=== PATIENT | female | born 1955 | race African-American/Black ===

== ENCOUNTER 2017-03-19 17:27 | Emergency (ER) | payer MEDICAID ==
[~2017-03-19] VITALS: Ht 165.1 cm; Wt 90.0 kg
[2017-03-19] MEDS ORDERED: METF500T4 PO (17:36)
[2017-03-19] MEDS ORDERED: SODIUM CHLORIDE 0.9% 1,000 ML IV ONE (17:47)
[2017-03-19 18:40] LABS: BASOPHILS % 0.5 % (0.0-2.0); EOSINOPHILS % 1.7 % (0.0-5.0); HEMATOCRIT. 38.1 % (36.0-48.0); LYMPHOCYTES % 46.7 % (20.0-50.0); MEAN CORPUSCULAR HEMOGLOBIN 29.7 pg (28.0-32.0); MEAN CORPUSCULAR VOLUME 86.8 fL (81.0-99.0); MEAN PLATELET VOLUME 11.5 fl (7.4-10.4); MONOCYTES % 10.3 % (2.0-8.0); NEUTROPHILS % 40.8 % (40.0-76.0); PLATELET 223 x1000/uL (130-400); RED BLOOD CELL COUNT 4.38 mill/uL (4.2-5.4); RED CELL DISTRIBUTION WIDTH 13.3 % (11.6-14.6)
[2017-03-19 18:45] LABS: PROTHROMBIN TIME 10.7 sec
[2017-03-19 18:54] LABS: BETA HYDROXYBUTYRATE 0.2 mMol/L (0.0-0.3); CARBON DIOXIDE 29 mEq/L (21-32); CHLORIDE 96 mEq/L (98-107); ETHANOL BLOOD < 10 mg/dL; TROPONIN I < 0.02 ng/mL (0.00-0.04)
[2017-03-19] MEDS ORDERED: INSULIN REGULAR HUMAN 100 UNITS/ML 10ML VIAL IV ONE (19:30)
[2017-03-19 19:31] LABS: CLARITY URINE CLOUDY (CLEAR); COLOR URINE YELLOW (YELLOW); GLUCOSE URINE 3+ (NEGATIVE); KETONES URINE NEGATIVE (NEGATIVE); LEUKOCYTE ESTERASE URINE NEGATIVE (NEGATIVE); NITRITE URINE NEGATIVE (NEGATIVE); OCCULT BLOOD URINE NEGATIVE (NEGATIVE); PH URINE 5.5 (4.5-8.0); PROTEIN URINE NEGATIVE (NEGATIVE); SPECIFIC GRAVITY URINE 1.022 (1.005-1.030); UROBILINOGEN URINE 0.2 E.U./dL (0.2-1.0)
[2017-03-19] MEDS ORDERED: SODIUM CHLORIDE 0.9% 1,000 ML IV NR (19:40)
[2017-03-19] MEDS ORDERED: INSULIN LISPRO(HUMALOG)300 UNIT/3ML VIAL SUBCUT NR (19:45)
[2017-03-19] MEDS ORDERED: KCL 20MEQ/100ML PREMIX 100 ML IV NR (19:45)
[2017-03-19] MEDS ORDERED: INSULIN REGULAR (HUMULIN R) 300UNITS/3ML SUBCUT NR (19:45)
[2017-03-19 19:47] LABS: *AMPHETAMINES SCREEN URINE NEGATIVE (NEGATIVE); *BARBITURATES SCREEN URINE NEGATIVE (NEGATIVE); *BENZODIAZEPINES SCREEN URINE NEGATIVE (NEGATIVE); *COCAINE SCREEN URINE NEGATIVE (NEGATIVE); CANNABINOID URINE SCREEN NEGATIVE (NEGATIVE); METHADONE URINE SCREEN NEGATIVE (NEGATIVE); OPIATES URINE SCREEN NEGATIVE (NEGATIVE); PHENCYCLIDINE URINE SCREEN NEGATIVE (NEGATIVE)
[2017-03-19] MEDS ORDERED: INSULIN REGULAR (HUMULIN R) 300UNITS/3ML IV ONE (23:00)
[2017-03-19] MEDS ORDERED: MAGNESIUM 1 G PREMIX 100 ML IV ONE (23:00)
[2017-03-20] MEDS ORDERED: ONDANSETRON HCL 4MG/2ML VIAL IV STA (00:31)
[2017-03-20 01:05] VITALS: BP 131/77
== END 2017-03-20 01:05 | disposition home or self-care (01) ==
LOC: ER 17:48
DX: E11.65 Type 2 diabetes mellitus with hyperglycemia (principal); J40 Bronchitis, not specified as acute or chronic; N39.0 Urinary tract infection, site not specified; I10 Essential (primary) hypertension; E87.6 Hypokalemia; Z91.14 Patient's other noncompliance with medication regimen; J45.909 Unspecified asthma, uncomplicated; Z79.84 Long term (current) use of oral hypoglycemic drugs; Z79.4 Long term (current) use of insulin; Z90.49 Acquired absence of other specified parts of digestive tract
CPT/HCPCS: 36415; 71010; 80053; 80305; 81001; 82010; 82962; 83605; 83690; 84484; 85025; 85610; 93005; 96361; 96365; 96372; 96375; 99285; G0482; J1815; J2405; J3480; J7030; Z7610

== ENCOUNTER 2017-08-10 15:20 | Emergency (ER) | payer MEDICAID, OTHER ==
[~2017-08-10] VITALS: Ht 165.1 cm; Wt 74.0 kg
[~2017-08-10 15:20] MED LIST: METF500T4 PO
[2017-08-10] MEDS ORDERED: ACETAMINOPHEN WITH CODEINE 300/30MG TABLET PO STA (17:24)
[2017-08-10 18:55] VITALS: BP 134/82
== END 2017-08-10 19:07 | disposition home or self-care (01) ==
LOC: ER 15:35
DX: S09.8XXA Other specified injuries of head, initial encounter (principal); E11.9 Type 2 diabetes mellitus without complications; I10 Essential (primary) hypertension; Y08.89XA Assault by other specified means, initial encounter; Y93.89 Activity, other specified; Y92.89 Other specified places as the place of occurrence of the external cause; Y99.8 Other external cause status; Z90.49 Acquired absence of other specified parts of digestive tract
CPT/HCPCS: 70450; 99284

== ENCOUNTER 2017-11-15 09:46 | Emergency (ER) | payer OTHER ==
[~2017-11-15] VITALS: Ht 170.2 cm; Wt 98.0 kg
[2017-11-15] MEDS ORDERED: ACETAMINOPHEN 500MG TABLET PO ONE (14:15)
[2017-11-15] MEDS ORDERED: IBUPROFEN 400MG TABLET PO ONE (14:15)
[2017-11-15 15:59] VITALS: BP 160/80
== END 2017-11-15 16:02 | disposition home or self-care (01) ==
LOC: ER 10:36
DX: S93.401A Sprain of unspecified ligament of right ankle, initial encounter (principal); M25.531 Pain in right wrist; I10 Essential (primary) hypertension; E11.65 Type 2 diabetes mellitus with hyperglycemia; J45.909 Unspecified asthma, uncomplicated; W01.0XXA Fall on same level from slipping, tripping and stumbling without subsequent striking against object, initial encounter; Y93.89 Activity, other specified; Y92.89 Other specified places as the place of occurrence of the external cause; Y99.8 Other external cause status
CPT/HCPCS: 73110; 73610; 73630; 82962; 99284